=== PATIENT | male | born 2000 | race Caucasian/White ===

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

== ENCOUNTER 2020-03-09 12:52 | Emergency (ER) | payer SELFPAY ==
[~2020-03-09] VITALS: Ht 165.1 cm; Wt 86.2 kg
[2020-03-09 13:08] VITALS: BP 100/58
--- NOTE | 2020-03-09 13:11 | NUR ---
PT INSTRUCTED TO WAIT IN LOBBY
--- NOTE | 2020-03-09 13:35 | NUR ---
Pt w/c assisted into bed 6.
--- NOTE | 2020-03-09 13:40 | NUR ---
19/M presents to ED with complaints of vomiting starting around 1100 this am after getting off from work. Pt states he went to work at 0300 and was released at 1030. Pt states he started to feel sick once he got home, complaining of N/V, states he felt hot, unknown if he had a fever. States he took a cold shower with no improvement. Denies pain. No active vomiting at this time. Afebrile upon arrival. Skin pale, warm and dry. Pt complains of nausea while in ED gurney and generalized weakness.
[2020-03-09] MEDS: ALUMINUM HYD/MAG/SIMETHICONE 30 ML UDC PO ONE (14:10)
[2020-03-09] MEDS: ONDANSETRON 4 MG ODT PO ONE (14:11)
[2020-03-09 15:12] VITALS: BP 101/55
--- NOTE | 2020-03-09 15:12 | NUR ---
Patient discharged with v/s stable. Written and verbal after care instructions given and explained. Patient alert, oriented and verbalized understanding of instructions. Ambulatory with steady gait. All questions addressed prior to discharge. ID band removed. Patient advised to follow up with PMD. Rx of Zofran and Pepcid given. Patient educated on indication of medication including possible reaction and side effects. Opportunity to ask questions provided and answered.
== END 2020-03-09 15:12 | disposition home or self-care (01) ==
LOC: MED 12:52
DX: K29.70 Gastritis, unspecified, without bleeding (principal); R53.1 Weakness
CPT/HCPCS: 82948; 99283; Q0162